=== PATIENT | female | born 1965 | race Hispanic/Latino ===

== ENCOUNTER 2023-08-19 13:43 | Emergency (ER) | payer BC ==
[~2023-08-19] VITALS: Ht 154.9 cm; Wt 102.1 kg
[2023-08-19] MEDS ORDERED: EPINEPHRINE 1MG/10ML(1:10,000) 0.1 MG/ML SYG IVP ONE (13:44)
[2023-08-19 14:15] VITALS: BP 0/0; PULSE 0; RESP 0; O2SAT 0
== END 2023-08-19 13:57 ==
LOC: EDH 13:43
DX: I46.9 Cardiac arrest, cause unspecified (principal); E11.9 Type 2 diabetes mellitus without complications; I10 Essential (primary) hypertension
CPT/HCPCS: 99285; 92950; 31500; J0171; J3490